=== PATIENT | female | born 1980 | race Caucasian/White ===

== ENCOUNTER → 2016-06-23 | Outpatient (CLI) | payer BC ==
[2016-06-23 16:08] LABS: CHLORIDE,CL 108 mmol/L (98-110); SODIUM,NA 141 mmol/L (136-146)
== END ==
LOC: MW.CHRC 15:22
PROVIDERS: ATTEND Family Medicine
DX: Z86.39 Personal history of other endocrine, nutritional and metabolic disease (principal)
CPT/HCPCS: 36415; 80053; 82306; 82607; 84439; 84443; 84481; 85025

== ENCOUNTER → 2016-06-28 | Outpatient (CLI) | payer BC ==
--- NOTE | 2016-06-29 09:14 | US ---
EXAMINATION: Limited soft tissue ultrasound of the right infra-auricular region HISTORY: Swelling COMPARISON: None TECHNIQUE: Grayscale and color Doppler images obtained of the region of concern. FINDINGS/IMPRESSION: Within the region of concern there is a nonpathologically enlarged 1.2 x 0.3 cm lymph node. A normal fatty hilum is identified. No abnormal mass or lymphadenopathy identified with in the region of concern.
== END | disposition home or self-care (01) ==
LOC: MW.US 12:54
PROVIDERS: ATTEND Family Medicine
DX: R22.1 Localized swelling, mass and lump, neck (principal); R59.9 Enlarged lymph nodes, unspecified
CPT/HCPCS: 76536-26; 76536-50

== ENCOUNTER 2016-07-16 09:22 | Emergency (ER) | payer BC ==
--- NOTE | 2016-07-16 09:48 | EDM.PDOC ---
ED HPI GENERAL MEDICAL PROBLEM - General Chief Complaint: Cardiovascular Problem Stated Complaint: UNK Time Seen by Provider: 07/16/16 09:42 - History of Present Illness INITIAL COMMENTS - FREE TEXT/NARRATIVE: HISTORY AND PHYSICAL: History of present illness: Patient is a 35-year-old white female presents with concern of palpitations patient states she has history of thyroid disease but this has been stable including recent laboratory analysis she denies chest pain or shortness of breath she states she has had a history of intermittent anemia in the past one was related to and was related to surgical she states that the surgical ventilator use she did require transfusion she states she has not been prescribed iron by her primary care doctor for any anemia to date. Review of systems: As per history of present illness and below otherwise all systems reviewed and negative. Past medical history: As per history of present illness and as reviewed below otherwise noncontributory. Surgical history: As per history of present illness and as reviewed below otherwise noncontributory. Social history: No reported history of drug or alcohol abuse. Family history: As per history of present illness and as reviewed below otherwise noncontributory. Physical exam: HEENT: Atraumatic, normocephalic, pupils reactive, negative for conjunctival pallor or scleral icterus, mucous membranes moist, throat clear, neck supple, nontender, trachea midline. Lungs: Clear to auscultation, breath sounds equal bilaterally, chest nontender. Heart: S1S2, tachycardic regular, negative for clicks, rubs, or JVD. Abdomen: Soft, nondistended, nontender. Negative for masses or hepatosplenomegaly. Negative for costovertebral tenderness. Pelvis: Stable nontender. Genitourinary: Deferred. Rectal: Deferred. Extremities: Atraumatic, negative for cords or calf pain. Neurovascular unremarkable. Neuro: Awake, alert, oriented. Cranial nerves II through XII unremarkable. Cerebellum unremarkable. Motor and sensory unremarkable throughout. Exam nonfocal. Diagnostics: #1 CBC CMP hCG EKG orthostatic vital sign Therapeutics: Normal saline 1 L bolus Impression: #1 palpitations Definitive disposition and diagnosis as appropriate pending reevaluation and review of above. - Related Data Allergies Allergy/AdvReac Type Severity Reaction Status Date / Time No Known Allergies Allergy Verified 07/16/16 09:25 Home Meds: Home Meds Levothyroxine Sodium [Synthroid] 1 tab PO DAILY 07/16/16 [History] Past Medical History Other Genitourinary History: Numerous bladder and kidney infections as child, but not know. Other Neuro History: Occasional hand tremors Other Endocrine/Metabolic History: Graves disease Other Immunologic History: Graves - Past Surgical History Other GI Surgeries/Procedures: 1998 Appendectomy Other Endocrine Surgeries/Procedures: Treated with radiation for Graves disease Social & Family History - Tobacco Use Smoking Status *Q: Never Smoker Years of Tobacco use: 14 Used Tobacco, but Quit: Yes Month Tobacco Last Used: September six years ago Second Hand Smoke Exposure: No - Caffeine Use Caffeine Use: Reports: None - Recreational Drug Use Recreational Drug Use: No ED ROS GENERAL - Review of Systems Review Of Systems: ROS reveals no pertinent complaints other than HPI. ED EXAM, GENERAL - Physical Exam Exam: See Below (See dictation) Course - Vital Signs Last Recorded V/S: Last Vital Signs Temp 36.7 C 07/16/16 09:25 Pulse 81 07/16/16 10:50 Resp 18 07/16/16 10:50 BP 126/78 07/16/16 10:50 Pulse Ox 99 07/16/16 10:50 Orthostatic Blood Pressure [ 108/66 Supine] - Orders/Labs/Meds Orders: Active Orders 24 hr Category Date Time Status EKG 12 Lead [EKG Documentation Completion] [RC] STAT Care 07/16/16 09:32 Active Chest 2V [CR] Stat Exams 07/16/16 10:53 Ordered Labs: Laboratory Tests 07/16/16 07/16/16 07/16/16 Range/Units 09:41 09:41 09:41 WBC 9.61 (4.0-11.0) K/uL RBC 4.14 L (4.30-5.90) M/uL Hgb 13.3 (12.0-16.0) g/dL Hct 37.7 (36.0-46.0) % MCV 91.1 (80.0-98.0) fL MCH 32.1 H (27.0-32.0) pg MCHC 35.3 (31.0-37.0) g/dL RDW Std Deviation 40.4 (28.0-62.0) fl RDW Coeff of Yuriy 12 (11.0-15.0) % Plt Count 253 (150-400) K/uL MPV 9.10 (7.40-12.00) fL Neut % (Auto) 83.0 H (48.0-80.0) % Lymph % (Auto) 10.2 L (16.0-40.0) % [place] % (Auto) 6.5 (0.0-15.0) % Eos % (Auto) 0.1 (0.0-7.0) % Baso % (Auto) 0.2 (0.0-1.5) % Neut # (Auto) 8.0 H (1.4-5.7) K/uL Lymph # (Auto) 1.0 (0.6-2.4) K/uL [place] # (Auto) 0.6 (0.0-0.8) K/uL Eos # (Auto) 0.0 (0.0-0.7) K/uL Baso # (Auto) 0.0 (0.0-0.1) K/uL Nucleated RBC % 0.0 /100WBC Nucleated RBCs # 0 K/uL Sodium 138 (136-146) mmol/L Potassium 3.8 (3.5-5.1) mmol/L Chloride 106 (98-110) mmol/L Carbon Dioxide 21 (21-31) mmol/L BUN 13 (6.0-23.0) mg/dL Creatinine 0.8 (0.6-1.5) mg/dL Est Cr Clr Drug Dosing 72.65 mL/min Estimated GFR (MDRD) > 60.0 ml/min Glucose 176 H (60-110) mg/dL Calcium 10.2 (8.8-10.8) mg/dL Total Bilirubin 0.5 (0.1-1.5) mg/dL AST 14 (5-40) IU/L ALT 15 (8-54) IU/L Alkaline Phosphatase 44 (40-150) Total Protein 7.6 (6.0-8.0) g/dL Albumin 4.8 (3.5-5.0) g/dL Globulin 2.8 (2.0-3.5) g/dL Albumin/Globulin Ratio 1.7 (1.3-2.8) HCG, Qual NEGATIVE (NEG) Meds: Medications Discontinued Medications Generic Name Dose Route Start Last Admin Trade Name Freq PRN Reason Stop Dose Admin Sodium Chloride 1,000 mls @ 999 mls/hr 07/16/16 09:49 07/16/16 09:50 Normal Saline IV 07/16/16 10:49 999 mls/hr .Bolus ONE Administration Departure - Departure Time of Disposition: 11:07 Disposition: Home, Self-Care 01 Condition: good Clinical Impression: Palpitations, Anxiety Forms: ED Department Discharge Additional Instructions: The following information is given to patients seen in the emergency department who are being discharged to home. This information is to outline your options for follow-up care. We provide all patients seen in our emergency department with a follow-up referral. The need for follow-up, as well as the timing and circumstances, are variable depending upon the specifics of your emergency department visit. If you don't have a primary care physician on staff, we will provide you with a referral. We always advise you to contact your personal physician following an emergency department visit to inform them of the circumstance of the visit and for follow-up with them and/or the need for any referrals to a consulting specialist. The emergency department will also refer you to a specialist when appropriate. This referral assures that you have the opportunity for followup care with a specialist. All of these measure are taken in an effort to provide you with optimal care, which includes your followup. Under all circumstances we always encourage you to contact your private physician who remains a resource for coordinating your care. When calling for followup care, please make the office aware that this follow-up is from your recent emergency room visit. If for any reason you are refused follow-up, please contact the [facility] emergency department at and asked to speak to the emergency department charge nurse. Followup primary medical doctor one to 2 days return as needed as discussed continue current medication - My Orders Last 24 Hours: My Active Orders 07/16/16 09:32 EKG 12 Lead [EKG Documentation Completion] [RC] STAT 07/16/16 10:53 Chest 2V [CR] Stat - Assessment/Plan Last 24 Hours: My Active Orders 07/16/16 09:32 EKG 12 Lead [EKG Documentation Completion] [RC] STAT 07/16/16 10:53 Chest 2V [CR] Stat
[2016-07-16] MEDS ORDERED: Sodium Chloride 0.9% 1,000 ML IV ONE (09:49)
[2016-07-16 10:13] LABS: CHLORIDE,CL 106 mmol/L (98-110); SODIUM,NA 138 mmol/L (136-146)
--- NOTE | 2016-07-16 11:14 | CR ---
EXAMINATION: Two-view chest (PA and Lateral views). HISTORY: Shortness of breath. FINDINGS: The trachea is midline. The cardiomediastinal silhouette is within normal limits. No pulmonary infil trates, effusions or pneumothorax. Osseous structures appear unremarkable. IMPRESSION: No acute cardiopulmonary process.
[2016-07-16 11:32] VITALS: BP 118/74
== END 2016-07-16 11:31 | disposition home or self-care (01) ==
LOC: MW.ED 09:22
DX: R00.2 Palpitations (principal); F41.9 Anxiety disorder, unspecified; E05.00 Thyrotoxicosis with diffuse goiter without thyrotoxic crisis or storm; Z90.89 Acquired absence of other organs; Z79.899 Other long term (current) drug therapy
CPT/HCPCS: 71020; 80053; 84703; 85025; 93005; 96360; 99285; J7040; 99283

== ENCOUNTER 2017-04-14 08:33 | Emergency (ER) | payer BC ==
--- NOTE | 2017-04-14 09:04 | EDM.PDOC ---
ED HPI GENERAL MEDICAL PROBLEM - General Chief Complaint: Chest Pain Stated Complaint: CHEST PAIN Time Seen by Provider: 04/14/17 09:01 - History of Present Illness INITIAL COMMENTS - FREE TEXT/NARRATIVE: HISTORY AND PHYSICAL: History of present illness: Patient is a 36-year-old white female sensory concern of anxiety she saw her doctor recently with a variety of complaints and has concerns of multiple sclerosis he discussed with her MRI has yet to schedule anything she had some routine labs for which she did not hear on the results. There's been no fever chills vomiting diarrhea. Review of systems: As per history of present illness and below otherwise all systems reviewed and negative. Past medical history: As per history of present illness and as reviewed below otherwise noncontributory. Surgical history: As per history of present illness and as reviewed below otherwise noncontributory. Social history: No reported history of drug or alcohol abuse. Family history: As per history of present illness and as reviewed below otherwise noncontributory. Physical exam: HEENT: Atraumatic, normocephalic, pupils reactive, negative for conjunctival pallor or scleral icterus, mucous membranes moist, throat clear, neck supple, nontender, trachea midline. Lungs: Clear to auscultation, breath sounds equal bilaterally, chest nontender. Heart: S1S2, regular, negative for clicks, rubs, or JVD. Abdomen: Soft, nondistended, nontender. Negative for masses or hepatosplenomegaly. Negative for costovertebral tenderness. Pelvis: Stable nontender. Genitourinary: Deferred. Rectal: Deferred. Extremities: Atraumatic, negative for cords or calf pain. Neurovascular unremarkable. Neuro: Awake, alert, oriented, anxious. Cranial nerves II through XII unremarkable. Cerebellum unremarkable. Motor and sensory unremarkable throughout. Exam nonfocal. Diagnostics: CBC CMP EKG Therapeutics: None Impression: #1 anxiety Definitive disposition and diagnosis as appropriate pending reevaluation and review of above. - Related Data Allergies Allergy/AdvReac Type Severity Reaction Status Date / Time No Known Allergies Allergy Verified 07/16/16 09:25 Home Meds: Home Meds Levothyroxine Sodium [Tirosint] 100 mcg PO DAILY 04/14/17 [History] Past Medical History Other Genitourinary History: Numerous bladder and kidney infections as child, but not know. Other Neuro History: Occasional hand tremors Psychiatric History: Reports: Anxiety Other Endocrine/Metabolic History: Graves disease Other Immunologic History: Graves - Infectious Disease History Infectious Disease History: Reports: Chicken Pox - Past Surgical History Other GI Surgeries/Procedures: 1998 Appendectomy Other Endocrine Surgeries/Procedures: Treated with radiation for Graves disease Social & Family History - Family History Family Medical History: Noncontributory - Tobacco Use Smoking Status *Q: Never Smoker Years of Tobacco use: 14 Used Tobacco, but Quit: Yes Month Tobacco Last Used: September six years ago Second Hand Smoke Exposure: No - Caffeine Use Caffeine Use: Reports: None Other Caffeine Use: quit 2 weeks ago - Recreational Drug Use Recreational Drug Use: No ED ROS GENERAL - Review of Systems Review Of Systems: ROS reveals no pertinent complaints other than HPI. ED EXAM, GENERAL - Physical Exam Exam: See Below (See dictation) Course - Vital Signs Last Recorded V/S: Last Vital Signs Temp 36.6 C 04/14/17 08:39 Pulse 118 H 04/14/17 08:39 Resp 20 04/14/17 08:39 BP 118/83 04/14/17 08:39 Pulse Ox 96 04/14/17 08:39 - Orders/Labs/Meds Orders: Active Orders 24 hr Category Date Time Status EKG Documentation Completion [RC] STAT Care 04/14/17 08:50 Active CMP [COMPREHENSIVE METABOLIC PN,CMP] [CHEM] Stat Lab 04/14/17 09:07 Received Labs: Laboratory Tests 04/14/17 Range/Units 09:07 WBC 13.43 H (4.0-11.0) K/uL RBC 4.07 L (4.30-5.90) M/uL Hgb 12.8 (12.0-16.0) g/dL Hct 36.0 (36.0-46.0) % MCV 88.5 (80.0-98.0) fL MCH 31.4 (27.0-32.0) pg MCHC 35.6 (31.0-37.0) g/dL RDW Std Deviation 39.3 (28.0-62.0) fl RDW Coeff of Yuriy 12 (11.0-15.0) % Plt Count 252 (150-400) K/uL MPV 8.70 (7.40-12.00) fL Neut % (Auto) 89.0 H (48.0-80.0) % Lymph % (Auto) 6.0 L (16.0-40.0) % [place] % (Auto) 4.9 (0.0-15.0) % Eos % (Auto) 0.0 (0.0-7.0) % Baso % (Auto) 0.1 (0.0-1.5) % Neut # (Auto) 12.0 H (1.4-5.7) K/uL Lymph # (Auto) 0.8 (0.6-2.4) K/uL [place] # (Auto) 0.7 (0.0-0.8) K/uL Eos # (Auto) 0.0 (0.0-0.7) K/uL Baso # (Auto) 0.0 (0.0-0.1) K/uL Nucleated RBC % 0.0 /100WBC Nucleated RBCs # 0 K/uL Departure - Departure Time of Disposition: 09:45 Disposition: Home, Self-Care 01 Condition: Good Clinical Impression: Anxiety, Encounter for medical screening examination - Discharge Information Referrals: Dominick Zimmerman MD [Primary Care Provider] - Forms: ED Department Discharge Additional Instructions: The following information is given to patients seen in the emergency department who are being discharged to home. This information is to outline your options for follow-up care. We provide all patients seen in our emergency department with a follow-up referral. The need for follow-up, as well as the timing and circumstances, are variable depending upon the specifics of your emergency department visit. If you don't have a primary care physician on staff, we will provide you with a referral. We always advise you to contact your personal physician following an emergency department visit to inform them of the circumstance of the visit and for follow-up with them and/or the need for any referrals to a consulting specialist. The emergency department will also refer you to a specialist when appropriate. This referral assures that you have the opportunity for followup care with a specialist. All of these measure are taken in an effort to provide you with optimal care, which includes your followup. Under all circumstances we always encourage you to contact your private physician who remains a resource for coordinating your care. When calling for followup care, please make the office aware that this follow-up is from your recent emergency room visit. If for any reason you are refused follow-up, please contact the [facility] emergency department at and asked to speak to the emergency department charge nurse. Follow-up private medical doctor as discussed return as needed as discussed - My Orders Last 24 Hours: My Active Orders 04/14/17 08:50 EKG Documentation Completion [RC] STAT 04/14/17 09:07 CMP [COMPREHENSIVE METABOLIC PN,CMP] [CHEM] Stat - Assessment/Plan Last 24 Hours: My Active Orders 04/14/17 08:50 EKG Documentation Completion [RC] STAT 04/14/17 09:07 CMP [COMPREHENSIVE METABOLIC PN,CMP] [CHEM] Stat
[2017-04-14 09:43] LABS: CHLORIDE,CL 101 mmol/L (98-110); SODIUM,NA 133 mmol/L (136-146)
[2017-04-14 10:14] VITALS: BP 103/68
== END 2017-04-14 10:14 | disposition home or self-care (01) ==
LOC: MW.ED 08:33
DX: F41.9 Anxiety disorder, unspecified (principal); Z79.899 Other long term (current) drug therapy
CPT/HCPCS: 36415; 80053; 85025; 93005; 99282; 99285-25

== ENCOUNTER 2018-07-25 06:50 | Inpatient (IN) | payer BC ==
[2018-07-25] MEDS ORDERED: Butorphanol 1 MG/ML SDV IVPUSH PRN (13:56)
[2018-07-25] MEDS ORDERED: Sodium Chloride 0.9% 2.5 ML Syringe FLUSH PRN (13:56)
[2018-07-25] MEDS ORDERED: Sodium Chloride 0.9% 10 ML Syringe FLUSH PRN (13:56)
[2018-07-25] MEDS ORDERED: Lidocaine 1% 50 ML MDV INJECT PRN (13:56)
[2018-07-25] MEDS ORDERED: Tranexamic Acid 1,000 MG in Sodium Chloride 0.9% 100 ML IV PRN (13:56)
[2018-07-25] MEDS ORDERED: Nalbuphine 10 MG/1 ML Vial IVPUSH PRN (13:56)
[2018-07-25] MEDS ORDERED: Sodium Chloride 0.9% 10 ML SDV IV PRN (13:56)
[2018-07-25] MEDS ORDERED: Carboprost Tromethamine 250 MCG/1 ML Amp IM PRN (13:56)
[2018-07-25] MEDS ORDERED: Water For Irrigation,Sterile 1,000 ML Container IRR PRN (13:56)
[2018-07-25] MEDS ORDERED: Methylergonovine 0.2 MG/1 ML Amp IM PRN (13:56)
[2018-07-25] MEDS ORDERED: Misoprostol 200 MCG Tab PO PRN (13:56)
[2018-07-25] MEDS ORDERED: Oxytocin/0.9 % Sodium Chloride 30 UNIT/500 ML BAG IV SCH (14:00)
[2018-07-25] MEDS ORDERED: Lactated Ringers 1,000 ML IV SCH (14:00)
[2018-07-25] MEDS ORDERED: Lidocaine 1% 50 ML MDV ONE (16:40)
[2018-07-25] MEDS ORDERED: Oxytocin 10 Units/1 ML SDV ONE (19:20)
--- NOTE | 2018-07-25 19:49 | PCM.DEL ---
L & D Note - General Info Date of Service: 07/25/18 Mother's Due Date: 07/24/18 - Delivery Note Labor: Spontaneous, Augmented by Oxytocin Delivery Outcome: Livebirth Infant Delivery Mode: Vacuum Extraction Presentation: Left Occiput Anterior (MADI) Nuchal Cord: Present, Reduced Prep: Povidone-Iodine (Betadine Anesthesia Type: None Amniotic Fluid Description: Meconium Stained Episiotomy Type: None Laceration: 2nd Degree Suture type: Vicryl Suture size: 3-0 Placenta: Intact, Spontaneous Cord: 3 Vessels Estimated Blood Loss: 200 Resuscitation Needed: No : Suctioned Score 1 min: 8 Score 5 min: 9 - General Info Date of Service: 07/25/18 - Patient Data Weight - Most Recent: 63.957 kg Lab Results Last 24 Hours: Laboratory Results - last 24 hr 07/25/18 07/25/18 07/25/18 Range/Units 07:00 13:25 13:25 WBC 7.11 (4.0-11.0) K/uL RBC 3.36 L (4.30-5.90) M/uL Hgb 10.8 L (12.0-16.0) g/dL Hct 32.3 L (36.0-46.0) % MCV 96.1 (80.0-98.0) fL MCH 32.1 H (27.0-32.0) pg MCHC 33.4 (31.0-37.0) g/dL RDW Std Deviation 52.4 (28.0-62.0) fl RDW Coeff of Yuriy 15 (11.0-15.0) % Plt Count 189 (150-400) K/uL MPV 11.00 (7.40-12.00) fL Nucleated RBC % 0.0 /100WBC Nucleated RBCs # 0 K/uL Membrane Rupture POSITIVE Blood Type A POSITIVE Antibody Screen NEGATIVE Med Orders - Current: Current Medications Butorphanol Tartrate (Stadol) 1 mg IVPUSH Q1H PRN PRN Reason: Pain Carboprost Tromethamine (Hemabate Ds) 250 mcg IM ASDIRECTED PRN PRN Reason: Post Hemorrhage Tranexamic Acid 1,000 mg/ (Sodium Chloride) 110 mls @ 660 mls/hr IV ONETIME PRN PRN Reason: Bleeding Lactated Ringer's (Ringers, Lactated) 1,000 mls @ 150 mls/hr IV ASDIRECTED ROSIE Oxytocin/Sodium Chloride (Oxytocin 30 Unit/500 Ml-Ns) 30 unit in 500 mls @ 999 mls/hr IV TITRATE ROSIE Lidocaine HCl (Xylocaine 1%) 50 ml INJECT ONETIME PRN PRN Reason: Laceration repair Last Admin: 07/25/18 19:00 Dose: 50 ml Methylergonovine Maleate (Methergine) 0.2 mg IM ASDIRECTED PRN PRN Reason: Post Hemorrhage Misoprostol (Cytotec) 200 mcg PO ONETIME PRN PRN Reason: Post Hemorrhage Nalbuphine HCl (Nubain) 10 mg IVPUSH Q1H PRN PRN Reason: Pain (severe 7-10) Sodium Chloride (Saline Flush) 10 ml FLUSH ASDIRECTED PRN PRN Reason: Keep Vein Open Sodium Chloride (Saline Flush) 2.5 ml FLUSH ASDIRECTED PRN PRN Reason: Keep Vein Open Sodium Chloride (Normal Saline) 10 ml IV ASDIRECTED PRN PRN Reason: IV Use Sterile Water (Sterile Water For Irrigation) 1,000 ml IRR ASDIRECTED PRN PRN Reason: delivery Last Admin: 07/25/18 19:25 Dose: 1,000 ml Discontinued Medications Lidocaine HCl (Xylocaine 1%) Confirm Administered Dose 50 ml .ROUTE .STK-MED ONE Stop: 07/25/18 16:41 Last Admin: 07/25/18 19:25 Dose: 50 ml Oxytocin (Pitocin) Confirm Administered Dose 10 unit .ROUTE .STK-MED ONE Stop: 07/25/18 19:21 - Problem List & Annotations (1) Vacuum extractor delivery, delivered SNOMED Code(s): 139107290 Code(s): O66.5 - ATTEMPTED APPLICATION OF VACUUM EXTRACTOR AND FORCEPS Status: Acute Current Visit: Yes (2) Vaginal delivery SNOMED Code(s): 897204618 Code(s): O80 - ENCOUNTER FOR FULL-TERM UNCOMPLICATED DELIVERY Status: Acute Current Visit: No - Problem List Review Problem List Initiated/Reviewed/Updated: Yes - My Orders Last 24 Hours: My Active Orders 07/25/18 07:17 Non Stress Test [RC] PER UNIT ROUTINE Up ad Odalis [RC] ASDIRECTED Vaginal Exam [RC] Click to Edit Vital Signs [RC] PER UNIT ROUTINE Resuscitation Status Routine 07/25/18 08:20 Patient Status [ADT] Routine 07/25/18 13:56 Heart Tones [RC] CONTINUOUS May Shower [RC] ASDIRECTED Notify Provider [RC] PRN Butorphanol [Stadol] 1 mg IVPUSH Q1H PRN Carboprost Tromethamine [Hemabate DS] 250 mcg IM ASDIRECTED PRN Lidocaine 1% [Xylocaine 1%] 50 ml INJECT ONETIME PRN Methylergonovine [Methergine] 0.2 mg IM ASDIRECTED PRN Nalbuphine [Nubain] 10 mg IVPUSH Q1H PRN Sodium Chloride 0.9% [Normal Saline] 10 ml IV ASDIRECTED PRN Sodium Chloride 0.9% [Saline Flush] 10 ml FLUSH ASDIRECTED PRN Sodium Chloride 0.9% [Saline Flush] 2.5 ml FLUSH ASDIRECTED PRN Tranexamic Acid [Cyklokapron] 1,000 mg Sodium Chloride 0.9% [Normal Saline] 100 ml IV ONETIME Water For Irrigation,Sterile [Sterile Water for Irrigation] 1,000 ml IRR ASDIRECTED PRN miSOPROStol [Cytotec] 200 mcg PO ONETIME PRN Scalp Electrode [WOMSER] Per Unit Routine Peripheral IV Insertion Adult [OM.PC] Routine 07/25/18 14:00 Lactated Ringers [Ringers, Lactated] 1,000 ml IV ASDIRECTED Oxytocin/0.9 % Sodium Chloride [Oxytocin 30 Unit/500 ML-NS] 30 unit in 500 ml IV TITRATE
[2018-07-25] MEDS ORDERED: Hydrocortisone 2.5% Crm 30 GM Tube TOP PRN (19:50)
[2018-07-25] MEDS ORDERED: Benzocaine/Menthol 20%-0.5% Spray 78 GM Cannister TOP PRN (19:50)
[2018-07-25] MEDS ORDERED: Bisacodyl 10 MG Supp RECTAL PRN (19:50)
[2018-07-25] MEDS ORDERED: Acetaminophen 500 MG Tab PO PRN ×2 (19:50)
[2018-07-25] MEDS ORDERED: Lanolin 100% Cream 7 GM Tube TOP PRN (19:50)
[2018-07-25] MEDS ORDERED: Docusate Sodium 100 MG Cap PO PRN (19:50)
[2018-07-25] MEDS ORDERED: Witch Hazel Medicated Pads 40/Jar TOP PRN (19:50)
[2018-07-25] MEDS ORDERED: oxyCODONE 5 MG Tab PO PRN (19:50)
[2018-07-25] MEDS ORDERED: Ibuprofen 800 MG Tab PO PRN (19:50)
[2018-07-25] MEDS ORDERED: Ibuprofen 400 MG Tab PO PRN (19:50)
--- NOTE | 2018-07-26 07:57 | PCM.PNPP ---
- General Info Date of Service: 07/26/18 Functional Status: Reports: Pain Controlled, Tolerating Diet, Ambulating, Urinating - Review of Systems General: Reports: No Symptoms HEENT: Reports: No Symptoms Pulmonary: Reports: No Symptoms Cardiovascular: Reports: No Symptoms Gastrointestinal: Reports: No Symptoms Genitourinary: Reports: No Symptoms Musculoskeletal: Reports: No Symptoms Skin: Reports: No Symptoms Neurological: Reports: No Symptoms Psychiatric: Reports: No Symptoms - General Info Date of Service: 07/26/18 - Patient Data Vital Signs - Most Recent: Last Vital Signs Temp 36.9 C 07/26/18 07:00 Pulse 82 07/26/18 07:00 Resp 16 07/26/18 07:00 BP 109/73 07/26/18 07:00 Pulse Ox 95 07/26/18 07:00 Weight - Most Recent: 63.957 kg Lab Results - Last 24 Hours: Laboratory Results - last 24 hr 07/25/18 07/25/18 07/25/18 Range/Units 13:25 13:25 19:25 WBC 7.11 (4.0-11.0) K/uL RBC 3.36 L (4.30-5.90) M/uL Hgb 10.8 L (12.0-16.0) g/dL Hct 32.3 L (36.0-46.0) % MCV 96.1 (80.0-98.0) fL MCH 32.1 H (27.0-32.0) pg MCHC 33.4 (31.0-37.0) g/dL RDW Std Deviation 52.4 (28.0-62.0) fl RDW Coeff of Yuriy 15 (11.0-15.0) % Plt Count 189 (150-400) K/uL MPV 11.00 (7.40-12.00) fL Nucleated RBC % 0.0 /100WBC Nucleated RBCs # 0 K/uL Cord ABG pH 7.168 L (7.18-7.38) Cord ABG Base Excess -11 L (-10--2) Cord VBG pH 7.229 L (7.25-7.45) Cord VBG Base Excess -11 L (-10--2) Blood Type A POSITIVE Antibody Screen NEGATIVE 07/26/18 Range/Units 05:12 WBC (4.0-11.0) K/uL RBC (4.30-5.90) M/uL Hgb 10.5 L (12.0-16.0) g/dL Hct 30.8 L (36.0-46.0) % MCV (80.0-98.0) fL MCH (27.0-32.0) pg MCHC (31.0-37.0) g/dL RDW Std Deviation (28.0-62.0) fl RDW Coeff of Yuriy (11.0-15.0) % Plt Count (150-400) K/uL MPV (7.40-12.00) fL Nucleated RBC % /100WBC Nucleated RBCs # K/uL Cord ABG pH (7.18-7.38) Cord ABG Base Excess (-10--2) Cord VBG pH (7.25-7.45) Cord VBG Base Excess (-10--2) Blood Type Antibody Screen Med Orders - Current: Current Medications Acetaminophen (Tylenol Extra Strength) 500 mg PO Q4H PRN PRN Reason: Pain Acetaminophen (Tylenol Extra Strength) 1,000 mg PO Q4H PRN PRN Reason: Pain Benzocaine/Menthol (Dermoplast Pain Relief 20%-0.5% [place]) 78 gm TOP ASDIRECTED PRN PRN Reason: Perineal Comfort Measure Last Admin: 07/25/18 21:38 Dose: 1 canister Bisacodyl (Dulcolax) 10 mg RECTAL ONETIME PRN PRN Reason: Constipation Docusate Sodium (Colace) 100 mg PO BID PRN PRN Reason: Constipation Emollient Ointment (Lansinoh Hpa) 0 gm TOP ASDIRECTED PRN PRN Reason: Sore Nipples Hydrocortisone (Proctozone-Hc 2.5% Crm) 1 gm TOP 5XDAY PRN PRN Reason: Itching Ibuprofen (Motrin) 400 mg PO Q4H PRN PRN Reason: Pain Ibuprofen (Motrin) 800 mg PO Q6H PRN PRN Reason: Pain Oxycodone HCl (Oxycodone) 5 mg PO Q2H PRN PRN Reason: Pain Witch Crystal (Tucks) 1 pad TOP ASDIRECTED PRN PRN Reason: comfort care Last Admin: 07/25/18 21:38 Dose: 1 tub Discontinued Medications Butorphanol Tartrate (Stadol) 1 mg IVPUSH Q1H PRN PRN Reason: Pain Carboprost Tromethamine (Hemabate Ds) 250 mcg IM ASDIRECTED PRN PRN Reason: Post Hemorrhage Tranexamic Acid 1,000 mg/ (Sodium Chloride) 110 mls @ 660 mls/hr IV ONETIME PRN PRN Reason: Bleeding Lactated Ringer's (Ringers, Lactated) 1,000 mls @ 150 mls/hr IV ASDIRECTED ROSIE Oxytocin/Sodium Chloride (Oxytocin 30 Unit/500 Ml-Ns) 30 unit in 500 mls @ 999 mls/hr IV TITRATE ROSIE Lidocaine HCl (Xylocaine 1%) 50 ml INJECT ONETIME PRN PRN Reason: Laceration repair Last Admin: 07/25/18 19:00 Dose: 50 ml Lidocaine HCl (Xylocaine 1%) Confirm Administered Dose 50 ml .ROUTE .[place] ONE Stop: 07/25/18 16:41 Last Admin: 07/25/18 19:25 Dose: 50 ml Methylergonovine Maleate (Methergine) 0.2 mg IM ASDIRECTED PRN PRN Reason: Post Hemorrhage Misoprostol (Cytotec) 200 mcg PO ONETIME PRN PRN Reason: Post Hemorrhage Nalbuphine HCl (Nubain) 10 mg IVPUSH Q1H PRN PRN Reason: Pain (severe 7-10) Oxytocin (Pitocin) Confirm Administered Dose 10 unit .ROUTE .RetslyMED ONE Stop: 07/25/18 19:21 Sodium Chloride (Saline Flush) 10 ml FLUSH ASDIRECTED PRN PRN Reason: Keep Vein Open Sodium Chloride (Saline Flush) 2.5 ml FLUSH ASDIRECTED PRN PRN Reason: Keep Vein Open Sodium Chloride (Normal Saline) 10 ml IV ASDIRECTED PRN PRN Reason: IV Use Sterile Water (Sterile Water For Irrigation) 1,000 ml IRR ASDIRECTED PRN PRN Reason: delivery Last Admin: 07/25/18 19:25 Dose: 1,000 ml - Infant Interaction Infant Disposition, : in Room with Family Infant Interaction: Holding Infant Feeding: Breastfed ; Nursed Well Support Person: - Recovery Exam Fundal Tone: Firm Fundal Level: 1 Fingerbreadths Below Umbilicus Fundal Placement: Midline Lochia Amount: Scant Lochia Color: Rubra/Red Perineum Description: Edematous Episiotomy/Laceration: Approximated Bladder Status: Nonpalpable, Voiding Urinary Elimination: Voided - Exam General: Alert GI/Abdominal Exam: Soft, Non-Tender, No Organomegaly, No Distention, No Abnormal Bruit Skin: Warm, Dry, Intact Neurological: No New Focal Deficit Psy/Mental Status: Alert, Normal Affect, Normal Mood - Problem List & Annotations (1) Vacuum extractor delivery, delivered SNOMED Code(s): 916392353 Code(s): O66.5 - ATTEMPTED APPLICATION OF VACUUM EXTRACTOR AND FORCEPS Status: Acute Current Visit: Yes (2) Vaginal delivery SNOMED Code(s): 128697603 Code(s): O80 - ENCOUNTER FOR FULL-TERM UNCOMPLICATED DELIVERY Status: Acute Current Visit: No - Problem List Review Problem List Initiated/Reviewed/Updated: Yes - My Orders Last 24 Hours: My Active Orders 07/25/18 07:17 Non Stress Test [RC] PER UNIT ROUTINE Vaginal Exam [RC] Click to Edit Vital Signs [RC] PER UNIT ROUTINE 07/25/18 13:56 Heart Tones [RC] CONTINUOUS 07/25/18 19:50 Patient Status [ADT] Routine May Shower [RC] ASDIRECTED Up ad Odalis [RC] ASDIRECTED Vital Signs [RC] PER UNIT ROUTINE Acetaminophen [Tylenol Extra Strength] 1,000 mg PO Q4H PRN Acetaminophen [Tylenol Extra Strength] 500 mg PO Q4H PRN Benzocaine/Menthol [Dermoplast Pain Relief 20%-0.5% [place]] 78 gm TOP ASDIRECTED PRN Bisacodyl [Dulcolax] 10 mg RECTAL ONETIME PRN Docusate Sodium [Colace] 100 mg PO BID PRN Hydrocortisone [Proctozone-HC 2.5% Crm] 1 gm TOP 5XDAY PRN Ibuprofen [Motrin] 400 mg PO Q4H PRN Ibuprofen [Motrin] 800 mg PO Q6H PRN Lanolin [Lansinoh HPA] See Dose Instructions TOP ASDIRECTED PRN Witch Crystal [Tucks] 1 pad TOP ASDIRECTED PRN oxyCODONE 5 mg PO Q2H PRN Assess Lochia [WOMSER] Per Unit Routine Assess Uterine Involution [WOMSER] Per Unit Routine Ice Therapy [OM.PC] Per Unit Routine Perineal Care [OM.PC] Per Unit Routine Peripheral IV Discontinue [OM.PC] Routine Sitz Bath [OM.PC] Per Unit Routine Resuscitation Status Routine 07/26/18 Breakfast Regular Diet [DIET] - Assessment Assessment:: PPD#1 after , stable, minimal lochia, tolerating diet. well, would like to be discharged this evening.
--- NOTE | 2018-07-26 15:38 | OR ---
SURGEON: Julia Lorenzana M.D. DATE OF PROCEDURE: 07/25/2018 PREOPERATIVE DIAGNOSES: 40-1/7 weeks' intrauterine , active spontaneous labor, arrest of descent. POSTOPERATIVE DIAGNOSES: 40-1/7 weeks' intrauterine , active spontaneous labor, arrest of descent. PROCEDURES: Vacuum-assisted vaginal delivery, repair of second-degree laceration. PRIMARY SURGEON: Julia Lorenzana MD. ANESTHESIA: Pudendal and local. ESTIMATED BLOOD LOSS: Less than 200 mL. FINDINGS: Liveborn male. scores of 8 and 9. Placenta spontaneous, Schultze intact, with 3 vessels. Second-degree perineal laceration, repaired. COMPLICATIONS: None known. DISPOSITION: Mother and baby are in LDR in good condition. BRIEF HISTORY: This is a 37-year-old female, G3, P 2-0-0-2. She presents in active spontaneous labor. She had spontaneous rupture of membranes, slow onset of labor, and did progress to 9+ cm at which time she felt the urge to push. At this point, she requested a pudendal block, which was performed because she felt that previously when she was trying to push she limited her pushing related to the pain on her perineum. DESCRIPTION OF PROCEDURE: With the patient in dorsal lithotomy position, the perineum and vagina were prepped with chlorhexidine. Pudendal block was placed injecting 10 mL of 1% lidocaine 1 cm inferior and medial to the sacrospinous process on the right and the left. The patient began to push. She started at a minus 1 station. She pushed to a +2 station. At this point, she had minimal progress and had been pushing for 2 hours. I discussed options including Pitocin augmentation, epidural, vacuum assistance, or . She did allow Pitocin augmentation of up to 2 milliunits per minute, and she continued to push. I did note that she had a prominent coccyx and it seemed that the head was having trouble getting around the coccyx. At just over 2 hours, we had another discussion about options, and after discussing risks and benefits of each option, she requested to proceed with a vacuum-assisted vaginal delivery. I did review risks with her including vaginal laceration and worsening perineal laceration as well as my concern about her prominent coccyx as well as risk of injury including scalp laceration, cephalhematoma, or intracranial hemorrhage. Understanding all these risks, she did desire to proceed with a vacuum-assisted vaginal delivery. She stated that her coccyx had broken with her first delivery, which was also a vacuum-assisted vaginal delivery, and she was aware that this could again occur. The bladder was drained. She was noted to have somewhat of a platypelloid pelvis with a prominent coccyx and the head was in a slight left occiput anterior position, rotated just off transverse, and was at a +2 station. The vacuum was placed 2 cm anterior to the posterior fontanelle, and with 1 contraction and patient expulsive efforts, the head was delivered over the perineum with support with subsequent delivery of the 's shoulders and body without any difficulty. The was bulb suctioned by nose and mouth. The cord was allowed to pulsate for greater than 5 minutes and was doubly clamped and cut. The infant was handed to the mother in the presence of the nurse attending delivery. The was a liveborn male, scores of 8 and 9. At the time when the head was delivered, a pop was heard, and I did feel that once again her coccyx had broken, and she concurred that this was a similar sensation to her first delivery. Upon inspection of the pelvis and perineum, there were no periurethral, vaginal sidewall, cervical, or rectal lacerations. There was a very small second-degree perineal laceration. Additional 10 mL of 1% lidocaine was injected and a 3-0 Vicryl was utilized to repair the vaginal mucosa with a running lock suture, deep running suture on the perineum, and a subcuticular suture on the skin, all using the 3-0 Vicryl. Final sponge, needle, and instrument counts were correct. The placenta had delivered spontaneously, Schultze intact, with 3 vessels. The fundus was firm. The patient declined Pitocin post delivery, and she had previously been counseled about the risks of bleeding, however, bleeding did not occur. The uterus was firm, and she did not require any additional intervention. Final sponge, needle, and instrument counts were correct. There were no known complications. The mom and baby are in LDR in good condition. LANCE / JASON /[id number] [facility]
[2018-07-26 19:59] VITALS: BP 101/68
== END 2018-07-26 21:40 | disposition home or self-care (01) | DRG 560 ==
LOC: MW.OBCHECK 06:50 → MW.OB 06:51 → OBSVTOIN 19:17 → MW.OBCHECK 19:17 → MW.OB 23:57
PROVIDERS: ADMIT Obstetrics & Gynecology; ATTEND Obstetrics & Gynecology
PROC: 10D07Z6 Extraction of Products of Conception, Vacuum, Via Natural or Artificial Opening (ICD-10-PCS; principal; 2018-07-25)
PROC: 0KQM0ZZ Repair Perineum Muscle, Open Approach (ICD-10-PCS; 2018-07-25)
DX: O48.0 Post-term pregnancy (principal); O99.284 Endocrine, nutritional and metabolic diseases complicating childbirth; E03.9 Hypothyroidism, unspecified; O99.02 Anemia complicating childbirth; D64.9 Anemia, unspecified; O62.1 Secondary uterine inertia; O70.1 Second degree perineal laceration during delivery; O77.0 Labor and delivery complicated by meconium in amniotic fluid; O69.81X0 Labor and delivery complicated by cord around neck, without compression, not applicable or unspecified; Z3A.40 40 weeks gestation of pregnancy; Z37.0 Single live birth
CPT/HCPCS: 36415; 59025; 59409; 82803; 84112; 85014; 85018; 85027; 86850; 86900; 86901; A9270-GY; J2001